=== PATIENT | male | born 1995 | race Caucasian/White ===

== ENCOUNTER 2018-01-11 03:47 | Emergency (ER) | payer OTHER ==
--- NOTE | 2018-01-11 04:18 | EDPHY ---
H & P Stated Complaint: R wrist laceration, Time Seen by Provider: 01/11/18 04:04 HPI/ROS: Chief Complaint: Hand laceration, alcohol intoxication HPI: 22-year-old male being brought in by police for intoxication and having sustained a laceration to his hand after punching through a plate glass window. Patient denies any other injuries. He is actually telling me that he fell on the ground and cut his hand on the gravel. Denies falling and hitting his head. No loss of consciousness. He is awake alert and oriented at this time. He is telling me that he does not want the lacerations repaired in his refusing treatment at this time. ROS: 10 point Review of Systems is negative except as noted in the HPI. PMH: Denies Social History: No smoking, positive alcohol, no recreational drug use Family History: non-contributory Physical Exam: Gen: Awake, Alert, No Distress HEENT: Nose: no rhinorrhea Eyes: PERRLA, EOMI Mouth: Moist mucosa Neck: Supple, no JVD Chest: nontender, lungs clear to auscultation Heart: S1, S2 normal, no murmur Abd: Soft, non-tender, no guarding Back: no CVA tenderness, no midline tenderness Ext: no edema, non-tender patient has a 1.5 cm laceration on his radial right wrist. There is no vascular structures involved. He has full flexion extension of all muscle groups and all fingers. He also has a skin avulsion over the proximal phalanx dorsal portion by 2nd finger. There is 2 small puncture wounds on his dorsum of his hand and the palmar aspect of his hand, each is about 7 mm. There are no foreign bodies noted. He has sensation intact in the radial, median and ulnar nerve distribution. Has no bony tenderness. There are no soft tissue foreign bodies noted. Skin: no rash Neuro: CN II-XII intact, Sensation grossly intact, Strength 5/5 in bilateral upper and lower extremities - Personal History Current Tetanus Diphtheria and Acellular Pertussis (TDAP): Yes - Medical/Surgical History Hx Asthma: No Hx Chronic Respiratory Disease: No Hx Diabetes: No Hx Cardiac Disease: No Hx Renal Disease: No Hx Cirrhosis: No Hx Alcoholism: No Hx HIV/AIDS: No Hx Splenectomy or Spleen Trauma: No Other PMH: denies - Social History Smoking Status: Never smoked Constitutional: Initial Vital Signs Temperature (C) 36.7 C 01/11/18 03:54 Heart Rate 113 H 01/11/18 03:54 Respiratory Rate 20 01/11/18 03:54 Blood Pressure 127/103 H 01/11/18 03:54 O2 Sat (%) 95 01/11/18 03:54 O2 Delivery Mode Room Air Allergies/Adverse Reactions: No Known Allergies Allergy (Unverified 01/11/18 03:53) Medical Decision Making ED Course/Re-evaluation: Patient is refusing laceration repair. I have explained that he might have foreign bodies which we cannot rule out without either x-ray or numbing expiration. Patient is refusing any numbing. He does not want any treatment at this time. I have explained also that he is at high risk for infection and also possibility of functional loss if a has a tendon injury. Patient states he understands this and still would like to refuse treatment. Patient has been dressed with sterile dressings and will be discharged home. Patient is competent to make these decisions at this time. Departure - Departure Disposition: Against Medical Advice Clinical Impression: Laceration Condition: Good Instructions: Laceration Without Closure (ED) Additional Instructions: Please return to the emergency department immediately for increasing pain, redness, discharge from the wound, fevers, chills, streaking up your arm, or any other concerns. Referrals: Patient,NotPresent [Primary Care Provider] - As per Instructions
[2018-01-11 04:41] VITALS: BP 132/92; PULSE 90; RESP 18; TEMP 97.9; O2SAT 96
== END 2018-01-11 04:42 | disposition left against medical advice (07) ==
DX: S61.511A Laceration without foreign body of right wrist, initial encounter (principal); W25.XXXA Contact with sharp glass, initial encounter